=== PATIENT | female | born 1970 | race Caucasian/White ===

== ENCOUNTER 2020-07-09 12:05 | Outpatient (CLI) | payer OTHER, SELFPAY ==
--- NOTE | ~2020-07-09 | MM_ITS ---
EXAMINATION: MM screening [facility] BI w giulia HISTORY: Screening mammogram TECHNIQUE: Craniocaudal and mediolateral oblique 3-D tomosynthesis images were obtained and synthetic 2-D images were generated. CAD analysis was submitted and interpreted. COMPARISON: 11/21/2018, 09/22/2017, 06/21/2016, 04/18/2015 BREAST PARENCHYMAL COMPOSITION: The breasts are heterogeneously dense, which may obscure small masses . FINDINGS: There is no evidence of suspicious mass, calcification, or architectural distortion to sugg est malignancy in either breast. There has been no suspicious interval change. IMPRESSION: 1. No mammographic evidence of malignancy. 2. Recommend routine screening mammography in one year. BI-RADS Category 1: Negative Reviewed, dictated and finalized at location A. [employer]
== END 2020-07-09 12:06 | disposition home or self-care (01) ==
PROVIDERS: PCP Physician Assistant; Visit Provider Obstetrics & Gynecology
DX: Z12.31 Encounter for screening mammogram for malignant neoplasm of breast (principal)
CPT/HCPCS: 77063; 77067

== ENCOUNTER 2021-09-24 10:36 | Outpatient (CLI) | payer OTHER, SELFPAY ==
--- NOTE | ~2021-09-24 | MM_ITS ---
EXAMINATION: MM screening [facility] BI w giulia HISTORY: Screening mammogram TECHNIQUE: Craniocaudal and mediolateral oblique 3-D tomosynthesis images were obtained and synthetic 2-D images were generated. CAD analysis was submitted and interpreted. COMPARISON: 07/09/2020, 11/21/2018, 09/22/2017 BREAST PARENCHYMAL COMPOSITION: The breasts are extremely dense, which lowers the sensitivity of mamm ography. FINDINGS: RIGHT BREAST: There is no evidence of suspicious mass, calcification, or architectural distortion to suggest malignancy. There has been no significant interval change. LEFT BREAST: A mass is present in the far posterior third of the slightly upper breast best appreciat ed 7 cm from the nipple on the mediolateral oblique view. IMPRESSION: 1. Left breast mass. 2. Additional mammographic views and possible breast ultrasound are recommended. BI-RADS Category 0: Incomplete: Needs additional imaging evaluation. Reviewed, dictated and finalized at location A. [facility] [employer] [facility] IMPRESSION: 1. Left breast mass. 2. Additional mammographic views and possible breast ultrasound are recommended . BI-RADS Category 0: Incomplete: Needs additional imaging evaluation.
== END 2021-09-24 10:37 | disposition home or self-care (01) ==
PROVIDERS: PCP Physician Assistant; Visit Provider Obstetrics & Gynecology
DX: Z12.31 Encounter for screening mammogram for malignant neoplasm of breast (principal); R92.8 Other abnormal and inconclusive findings on diagnostic imaging of breast
CPT/HCPCS: 77063; 77067

== ENCOUNTER 2021-10-09 12:33 | Outpatient (CLI) | payer OTHER, SELFPAY ==
--- NOTE | ~2021-10-09 | MMUS_ITS ---
EXAMINATION: MM diagnostic [facility] LT w giulia, US breast LT limited HISTORY: Left breast mass on screening mammogram TECHNIQUE: Additional 3-D tomosynthesis images of the left breast were performed and synthetic 2-D im ages were generated. CAD analysis was submitted and interpreted. High resolution limited left breast ultrasound was performed. COMPARISON: 09/24/2021, 07/09/2020, 11/21/2018 FINDINGS: MAMMOGRAPHIC FINDINGS: There is a 10 mm round, obscured, equal density mass in the far posterior third outer breast 6 cm fro m the nipple at the 3:00 location. ULTRASOUND: There is a 12 mm x 8 mm oval, circumscribed, parallel, hypoechoic mass with no posterior features or internal vascularity at the 2:00 location 5 cm from the nipple. A 10 mm x 5 mm mass with similar sono graphic features is seen at the 3:00 location 4 cm from the nipple. There is an 8 mm x 5 mm mass with similar sonographic features in the subareolar aspect of the breast. Cysts are noted at the 1:00 loc ation 3 cm from the nipple. IMPRESSION: 1. Three sonographically similar hypoechoic masses of the left breast. Ultrasound guided biopsy of th e masses at the 2:00 location 5 cm from the nipple and the 12:00 location in the subareolar aspect of the breast are recommended given that these are the furthest apart. BI-RADS category 4, suspicious findings. Reviewed, dictated and finalized at location A. IMPRESSION: 1. Three sonographically similar hypoechoic masses of the left breast. Ultrasou nd guided biopsy of the masses at the 2:00 location 5 cm from the nipple and th e 12:00 location in the subareolar aspect of the breast are recommended given t hat these are the furthest apart. BI-RADS category 4, suspicious findings.
== END 2021-10-09 12:34 | disposition home or self-care (01) ==
LOC: ANHIMG 12:39
PROVIDERS: PCP Physician Assistant; Visit Provider Obstetrics & Gynecology
DX: N63.0 Unspecified lump in unspecified breast (principal); R92.8 Other abnormal and inconclusive findings on diagnostic imaging of breast
CPT/HCPCS: 76642; 77061; 77065; G0279

== ENCOUNTER 2021-10-22 10:35 | Outpatient (CLI) | payer OTHER, SELFPAY ==
--- NOTE | ~2021-10-22 | MMUS_ITS ---
EXAMINATION: US breast biopsy LT w image, MM post biopsy invasive LT, US breast bx add lesion LT DATE: 10/22/2021 12:12 (accession [id number]), 10/22/2021 12:19 (accession [id number]), 09/24 12:10 (accession [id number]) INDICATION: Indeterminate masses in the subareolar and upper outer quadrant of the left breast. Ultra sound-guided core biopsy is requested to evaluate for malignancy. TECHNIQUE AND FINDINGS: The risks and potential benefits of the procedure were discussed with the patient including bleeding and infection. A time out was performed. The skin of the left breast was prepared and draped in usual sterile fashion. 1% lidocaine was used for superficial anesthesia. 1% lidocaine with epinephrine was used for deep anesthesia. A vacuum-assisted biopsy gun needle was first advanced through to the outer edge of the mass at the 1 2:00 location near the nipple from a lateral approach utilizing sonographic guidance. A total of six tissue core samples were obtained through the lesion. A tissue heart marker clip was then placed at t he biopsy site. Hemostasis was achieved. A vacuum-assisted biopsy gun needle was then advanced throug h to the outer edge of the mass at the 2:00 location 5 cm from the nipple from a lateral approach uti lizing sonographic guidance. A total of five tissue core samples were obtained through the lesion. A ribbon tissue marker clip was then placed at the biopsy site. Hemostasis was achieved. A sterile band age was applied. The patient tolerated procedure well and there was no evidence of immediate complication. The patient was given verbal instructions to return to the Emergency Department in the event of severe breast pa in or rapid breast enlargement. A two view left breast mammogram was obtained to document tissue geovanni er clip placement. IMPRESSION: 1. Successful ultrasound-guided vacuum-assisted biopsy of left breast masses with tissue marker place ment. Reviewed, dictated and finalized at location A. IMPRESSION: 1. Successful ultrasound-guided vacuum-assisted biopsy of left breast masses wi th tissue marker placement. IMPRESSION: 1. Successful ultrasound-guided vacuum-assisted biopsy of left breast masses wi th tissue marker placement.
== END 2021-10-22 10:36 | disposition home or self-care (01) ==
PROVIDERS: PCP Physician Assistant; Visit Provider Obstetrics & Gynecology
DX: R92.8 Other abnormal and inconclusive findings on diagnostic imaging of breast (principal)
CPT/HCPCS: 19083; 19084; 88305; A4648

== ENCOUNTER → 2023-08-16 12:55 | Outpatient (CLI) | payer OTHER, SELFPAY ==
--- NOTE | ~2023-08-16 | CT_ITS ---
EXAMINATION: CT IAC/mastoids BI wo con DATE: 08/16/2023 13:16 INDICATION: Dizziness. Left ear deafness. TECHNIQUE: Computed tomography (CT) of the temporal bones was performed without intravenous contrast. Automated exposure control and iterative reconstruction technique were employed. The dose-length pro duct was 160.44 mGy-cm. 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 RIGHT TEMPORAL BONE: The internal auditory canal, cochlea, vestibule, semicircular canals, vestibular aqueduct, carotid ca nal, jugular bulb, facial nerve course, ossicles, Prussak space, scutum, tympanic membrane, mastoid a ir cells, and external auditory canal are normal. LEFT TEMPORAL BONE: The internal auditory canal, cochlea, vestibule, semicircular canals, vestibular aqueduct, carotid ca nal, jugular bulb, facial nerve course, ossicles, Prussak space, scutum, mastoid air cells, tympanic membrane, and external auditory canal are normal. IMPRESSION: 1. Normal temporal bones. Reviewed, dictated and finalized at location E. [employer] IMPRESSION: 1. Normal temporal bones.
== END ==
DX: R42 Dizziness and giddiness (principal)
CPT/HCPCS: 70480

== ENCOUNTER 2023-10-04 16:40 | Outpatient (CLI) | payer OTHER, SELFPAY ==
--- NOTE | ~2023-10-04 | MM_ITS ---
EXAMINATION: MM screening [facility] BI w giulia HISTORY: Screening mammogram TECHNIQUE: Craniocaudal and mediolateral oblique 3-D tomosynthesis images were obtained and synthetic 2-D images were generated. CAD analysis was submitted and interpreted. COMPARISON: 10/09/2021, 09/24/2021, 07/09/2020 BREAST PARENCHYMAL COMPOSITION:Dense: The breasts are heterogeneously dense, which may obscure small masses. FINDINGS: Stable mass at the posterior upper, outer left breast with adjacent biopsy clip, shown to r epresent fibroadenoma. Additional biopsy clip in the more subareolar left breast is present. No suspi cious mass, calcification, or architectural distortion are identified in either breast to suggest mal ignancy. There has been no suspicious interval change. IMPRESSION: No mammographic evidence of malignancy. Recommend routine screening mammography in one year. BI-RADS Category 2: Benign finding(s). Reviewed, dictated and finalized at location .
== END 2023-10-04 16:41 | disposition home or self-care (01) ==
PROVIDERS: PCP Physician Assistant
DX: Z12.31 Encounter for screening mammogram for malignant neoplasm of breast (principal)
CPT/HCPCS: 77063; 77067